=== PATIENT | male | born 1975 | race Caucasian/White ===

== ENCOUNTER 2022-09-03 16:40 | Emergency (ER) | payer OTHER ==
[2022-09-03 16:53] VITALS: BP 135/87; PULSE 65; RESP 18; TEMP 98.4; BMI 31.8
[2022-09-03] MEDS ORDERED: TETRACAINE 0.5% HCL 0.6ML DROPPER.BOTTLE OU ONE (17:33)
[2022-09-03] MEDS ORDERED: FLUORESCEIN NA 1 EA STRIP OU ONE (17:33)
[2022-09-03] MEDS ORDERED: FLUORESCEIN NA 1 EA STRIP ONE (17:45)
[2022-09-03] MEDS ORDERED: ERYTHROMYCIN 0.5% OPHTHALMIC OINTMENT 3.5 GM TUBE ONE (17:45)
[2022-09-03] MEDS ORDERED: TETRACAINE 0.5% OPHTH SOLN 2 ML BOTTLE ONE (17:46)
[2022-09-03] MEDS ORDERED: ERYTHROMYCIN 0.5% OPHTHALMIC OINTMENT 3.5 GM TUBE OU ONE (17:55)
== END 2022-09-03 18:55 | disposition home or self-care (01) ==
LOC: JER 16:40 → JERFT 16:40
DX: S05.01XA Injury of conjunctiva and corneal abrasion without foreign body, right eye, initial encounter (principal); S05.02XA Injury of conjunctiva and corneal abrasion without foreign body, left eye, initial encounter; Y93.D3 Activity, furniture building and finishing
CPT/HCPCS: 99283-25

== ENCOUNTER 2024-05-04 09:11 | Emergency (ER) | payer OTHER ==
[2024-05-04 09:18] VITALS: BP 147/99; PULSE 79; RESP 18; TEMP 97.9; BMI 35.2
[2024-05-04] MEDS ORDERED: ONDANSETRON 4 MG/2 ML VIAL ONE (09:46)
[2024-05-04] MEDS: SODIUM CHLORIDE 0.9% 500 ML INFUS.BAG IV ONE (10:11)
[2024-05-04] MEDS: ONDANSETRON 4 MG/2 ML VIAL IVPUSH ONE (10:11)
[2024-05-04 10:37] LABS: POTASSIUM 3.8 mmol/L (3.5-5.1)
[2024-05-04 10:40] LABS: ALBUMIN 3.8 g/dl (3.4-5.0); CALCIUM 8.8 mg/dL (8.5-10.1)
[2024-05-04 10:41] LABS: VENOUS O2 SATURATION 82.6 % (70-80); VENOUS PCO2 39.6 mmHg (38-52); VENOUS PH 7.424 (7.310-7.410)
[2024-05-04 10:41] LABS: BLOOD UREA NITROGEN 4.4 mg/dL (7-18)
[2024-05-04 10:44] LABS: CREATININE 0.7 mg/dL (0.55-1.3)
[2024-05-04 10:45] LABS: BASO % 1.3 % (0-2.0); BILIRUBIN,TOTAL 0.7 mg/dL (0.2-1); EOS % 0.2 % (0-4.5); LYMPH % 38.9 % (8-40); MEAN CELL VOLUME 88.1 fl (80-96); MEAN PLT VOLUME 8.3 fl (7.5-11.1); MONO % 5.8 % (3.8-10.2); NEUT % 53.8 % (42.8-82.8); PLATELET COUNT 250 10^3/uL (134-434); RBC 4.99 M/mm3 (4.00-5.60); TOT PROT 7.7 g/dl (6.4-8.2)
[2024-05-04] MEDS ORDERED: MAG HYDROX/AL HYDROX/SIMETH 30 ML UNIT-DOSE CUP ONE (12:06)
[2024-05-04] MEDS ORDERED: FAMOTIDINE 20 MG TABLET ONE (12:06)
[2024-05-04] MEDS: FAMOTIDINE 20 MG TABLET PO ONE (12:09)
[2024-05-04] MEDS: MAG HYDROX/AL HYDROX/SIMETH 30 ML UNIT-DOSE CUP PO ONE (12:10)
== END 2024-05-04 12:58 | disposition home or self-care (01) ==
LOC: JER 09:11
PROC: 3E033GC Introduction of Other Therapeutic Substance into Peripheral Vein, Percutaneous Approach (ICD-10-PCS; principal; 2024-05-04)
DX: K29.20 Alcoholic gastritis without bleeding (principal); R10.13 Epigastric pain; R11.2 Nausea with vomiting, unspecified; R19.7 Diarrhea, unspecified
CPT/HCPCS: 36415; 80053; 82803; 83690; 84484; 85025; 93005; 93010; 99284-25

== ENCOUNTER 2024-05-06 18:58 | Inpatient (IN) | payer OTHER ==
[2024-05-06 19:51] VITALS: BMI 29.7
[2024-05-06] MEDS ORDERED: NALOXONE HCL 0.4 MG/ML VIAL IM PRN (20:34)
[2024-05-06] MEDS ORDERED: BISMUTH SUBSALICYLATE 524 MG/30 ML PO PRN (20:34)
[2024-05-06] MEDS ORDERED: IBUPROFEN 400 MG TABLET (FP) PO PRN (20:34)
[2024-05-06] MEDS ORDERED: NALOXONE (NARCAN) HCL 4 MG/0.1 ML SPRAY NS PRN (20:34)
[2024-05-06] MEDS ORDERED: BENZOCAINE/MENTHOL (CHLORASEPTIC ) LOZENGE MM PRN (20:34)
[2024-05-06] MEDS ORDERED: IBUPROFEN 600 MG TABLET (FP) PO PRN (20:34)
[2024-05-06] MEDS ORDERED: DICYCLOMINE HCL 10 MG CAPSULE PO PRN (20:34)
[2024-05-06] MEDS ORDERED: POLYETHYLENE GLYCOL (HEALTHYLAX) 3350 17 GM PACKET PO PRN (20:34)
[2024-05-06] MEDS ORDERED: BENZONATATE 200 MG CAPSULE PO PRN (20:34)
[2024-05-06] MEDS ORDERED: ACETAMINOPHEN 325 MG TABLET (FP) PO PRN (20:34)
[2024-05-06] MEDS ORDERED: MAGNESIUM HYDROX 2400MG/30ML ORAL SUSPENSION 30 ML CUP PO PRN (20:34)
[2024-05-06] MEDS ORDERED: guaiFENesin 600 MG TABLET.ER (FP) PO PRN (20:34)
[2024-05-06] MEDS ORDERED: ONDANSETRON *ODT* 4 MG TABLET SL PRN (20:34)
[2024-05-06] MEDS ORDERED: LOPERAMIDE HCL 2 MG CAPSULE PO PRN (20:34)
[2024-05-06] MEDS ORDERED: cloNIDine HCL 0.1 MG TABLET ONE (21:05)
[2024-05-06] MEDS: cloNIDine HCL 0.1 MG TABLET PO ONE (21:09)
[2024-05-06] MEDS: MELATONIN 5 MG TABLETS PO SCH (22:05)
[2024-05-06] MEDS: METHOCARBAMOL 500 MG TABLET PO PRN (22:06)
[2024-05-06] MEDS: FAMOTIDINE 20 MG TABLET PO SCH (22:06)
[2024-05-06] MEDS: MAG HYDROX/AL HYDROX/SIMETH 30 ML UNIT-DOSE CUP PO SCH (22:06)
[2024-05-06] MEDS: hydrOXYzine PAMOATE 25 MG CAPSULE (FP) PO PRN (22:06)
[2024-05-06] MEDS: THIAMINE 100 MG TABLET PO SCH (22:48)
[2024-05-07] MEDS: PRENATAL VITAMINS W/ FOLIC ACID TABLET (FP) PO SCH (09:41)
[2024-05-07] MEDS ORDERED: chlordiazePOXIDE HCL 25 MG CAPSULE PO PRN (09:43)
[2024-05-07] MEDS: chlordiazePOXIDE HCL 25 MG CAPSULE PO SCH (10:37)
[2024-05-07 11:54] LABS: CHLORIDE 102 mmol/L (98-107); POTASSIUM 3.6 mmol/L (3.5-5.1); SODIUM 138 mmol/L (136-145)
[2024-05-07 12:08] LABS: ALBUMIN 3.7 g/dl (3.4-5.0); ANION GAP 9 mmol/L (4-13); CO2 27 mmol/L (21-32); GLUCOSE,RANDOM 105 mg/dL (74-106)
[2024-05-07 12:09] LABS: HEMATOCRIT 42.8 % (35.4-49); HEMOGLOBIN 14.6 GM/dL (11.7-16.9); MCH 30.3 pg (25.7-33.7); MCHC 34.2 g/dl (32.0-35.9); MEAN CELL VOLUME 88.6 fl (80-96); MEAN PLT VOLUME 9.3 fl (7.5-11.1); PLATELET COUNT 201 10^3/uL (134-434); RBC 4.83 M/mm3 (4.00-5.60); RDW 14.2 % (11.9-15.9); WHITE BLOOD COUNT 6.3 K/mm3 (4.0-10.0)
[2024-05-07 12:11] LABS: CREATININE 0.9 mg/dL (0.55-1.3); SGOT/AST 33 U/L (15-37); SGPT/ALT 34 U/L (13-61)
[2024-05-07 12:14] LABS: ALK PHOS 90 U/L (45-117)
[2024-05-08] MEDS: MAG HYDROX/AL HYDROX/SIMETH 30 ML UNIT-DOSE CUP PO PRN (22:42)
[2024-05-09] MEDS: chlordiazePOXIDE HCL 25 MG CAPSULE PO SCH (05:55)
[2024-05-10] MEDS ORDERED: chlordiazePOXIDE HCL 10 MG CAPSULE PO PRN
[2024-05-10] MEDS: chlordiazePOXIDE HCL 10 MG CAPSULE PO SCH (05:53)
[2024-05-11] MEDS: chlordiazePOXIDE HCL 10 MG CAPSULE PO SCH (06:00)
[2024-05-11 06:19] VITALS: RESP 16
[2024-05-11 09:18] VITALS: BP 143/90; PULSE 78; TEMP 98.7
[2024-05-12] MEDS ORDERED: chlordiazePOXIDE HCL 10 MG CAPSULE PO ONE (05:00)
== END 2024-05-11 09:53 | disposition home or self-care (01) | DRG 775 ==
LOC: YASAS 18:58 → Y3N 20:33
PROVIDERS: ADMIT Allergy & Immunology; ATTEND Surgery
PROC: HZ2ZZZZ Detoxification Services for Substance Abuse Treatment (ICD-10-PCS; principal; 2024-05-06)
DX: F10.230 Alcohol dependence with withdrawal, uncomplicated (principal); E78.5 Hyperlipidemia, unspecified; I10 Essential (primary) hypertension; K29.20 Alcoholic gastritis without bleeding; K21.9 Gastro-esophageal reflux disease without esophagitis; Z87.891 Personal history of nicotine dependence; Z87.19 Personal history of other diseases of the digestive system
CPT/HCPCS: 36415; 80053; 80305; 80307; 85027; 86780; 93005; 93010